=== PATIENT | female | born 1990 | race Caucasian/White ===

== ENCOUNTER 2017-09-11 15:39 | Emergency (ER) | payer SELFPAY ==
--- NOTE | 2017-09-11 16:05 | EDPHYS ---
Physician Documentation [facility] Name: Nighat Andres Age: 26 yrs Sex: Female : 1990 Arrival Date: 09/11/2017 Time: 15:42 Bed 19 Private MD: out of town, doctor ED Physician Richy Mcneal HPI: 09/11 15:54 This 26 yrs old Female presents to ER via Ambulatory with complaints of jmm Toothache. 15:54 The patient presents with broken tooth/teeth, pain. The problem is located in the upper jmm right second molar, upper right first molar and upper right second bicuspid. Onset: The symptoms/episode began/occurred gradually, 2 week(s) ago. Associated signs and symptoms: Pertinent positives: pain, Pertinent negatives: fever. Severity of symptoms:. This is a 26 year old female with no chronic medical conditions that presents to the ED with right upper molar pain beginning a chipping a tooth. patient complains of generalized right facial pain, denies fever. . 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 - Social history:: Smoking status: Patient/guardian denies using tobacco. - Ebola Screening: : No symptoms or risks identified at this time. ROS: 15:54 Constitutional: Negative for fever, chills, and weight loss, Cardiovascular: Negative jm for chest pain, palpitations, and edema, Respiratory: Negative for shortness of breath, cough, wheezing, and pleuritic chest pain. 15:54 MS/Extremity: Negative for injury and deformity, Skin: Negative for injury, rash, and discoloration, Neuro: Negative for headache, weakness, numbness, tingling, and seizure. 15:54 ENT: Positive for dental pain. 15:54 All other systems are negative. Exam: 15:54 Head/Face: atraumatic. jmm 15:54 Constitutional: The patient appears in no acute distress, alert, awake. 15:54 Head/face: no swelling is appreciated. 15:54 ENT: Diffuse dental decay noted. 15:54 Abdomen/GI: Inspection: abdomen appears normal. [facility] 15:54 Musculoskeletal/extremity: ROM: intact in all extremities. 15:54 Skin: Appearance: Color: normal in color, Temperature: normal temperature, Moisture: normal moisture. 15:54 Neuro: Orientation: is normal, Mentation: is normal, Memory: is normal, Gait: is steady. Vital Signs: 15:43 BP 121 / 99; Pulse 83; Resp 18; Temp 98.1(TE); Pulse Ox 98% on R/A; Weight 74.84 kg; sv Height 5 ft. 2 in. (157.48 cm); Pain 8/10; 15:43 Body Mass Index 30.18 (74.84 kg, 157.48 cm) sv MDM: 15:54 Patient medically screened. [facility] 15:54 Data reviewed: vital signs, nurses notes. Counseling: I had a detailed discussion with yancy the patient and/or guardian regarding: the presence of at least one elevated blood pressure reading (>120/80) during this emergency department visit. ED course: PE findings are currently not concerning for dental abscess. patient is alert and non toxic in appearance in the ED. patient will prescribed antibiotics and she states she will follow up with dentist for reevaluation. patient is otherwise given return precautions. patient understood and agrees with the plan of care. . Administered Medications: No medications were administered Disposition: 09/11/17 16:04 Discharged to Home. Impression: Dental caries. - Condition is Stable. - Discharge Instructions: Dental Pain. - Prescriptions for Clindamycin HCl 300 mg Oral Capsule - take 1 capsule by ORAL route every 6 hours for 10 days; 40 capsule. - Medication Reconciliation Form, Thank You Letter, Antibiotic Education, Prescription Opioid Use form. - Follow up: Private Physician; When: 1 - 2 days; Reason: Re-evaluation by your physician. Addendum: 09/15/2017 11:59 Co-signature as Attending Physician, Richy Mcneal MD. g s Signatures: Irina Boswell RN RN Donnie Shaw PA PA jmm Munoz, Edgar, CAR CHASER CAR CHASER em Richy Mcneal MD MD gs Corrections: (The following items were deleted from the chart) 09/11 16:23 16:04 09/11/2017 16:04 Discharged to Home. Impression: Dental caries. Condition is em Stable. Forms are Medication Reconciliation Form, Thank You Letter, Antibiotic Education, Prescription Opioid Use. Follow up: Private Physician; When: 1 - 2 days; Reason: Re-evaluation by your physician. yancy
--- NOTE | 2017-09-11 16:05 | ER ---
Nurse's Notes [facility] Name: Nighat Andres Age: 26 yrs Sex: Female : 1990 Arrival Date: 09/11/2017 Time: 15:42 Bed 19 Private MD: out of town, doctor Diagnosis: Dental caries Presentation: 09/11 15:42 Presenting complaint: Patient states: tooth pain to the right upper side with right sv side cheek pain started yesterday. Tylenol taken this morning at 0800. Transition of care: patient was not received from another setting of care. Onset of symptoms was September 10, 2017. Risk Assessment: Do you want to hurt yourself or someone else? Patient reports no desire to harm self or others. Care prior to arrival: None. 15:42 Method Of Arrival: Ambulatory sv 15:42 Acuity: JM 4 sv 16:05 Initial Sepsis Screen: Does the patient meet any 2 criteria? No. Patient's initial em sepsis screen is negative. Does the patient have a suspected source of infection? No. Patient's initial sepsis screen is negative. 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 - Social history:: Smoking status: Patient/guardian denies using tobacco. - Ebola Screening: : No symptoms or risks identified at this time. Screenin:05 Abuse screen: Denies threats or abuse. Nutritional screening: No deficits noted. em Tuberculosis screening: No symptoms or risk factors identified. Fall Risk None identified. Assessment: 16:05 General: Appears in no apparent distress. uncomfortable, Behavior is calm, cooperative. em Pain: Complains of pain in mouth. Neuro: Level of Consciousness is awake, alert, obeys commands, Oriented to person, place, time, situation. Cardiovascular: Capillary refill < 3 seconds Patient's skin is warm and dry. Respiratory: Airway is patent Respiratory effort is even, unlabored, Respiratory pattern is regular, symmetrical. GI: Abdomen is flat. : No signs and/or symptoms were reported regarding the genitourinary system. EENT: Dental caries noted in upper right second bicuspid and upper right first molar and upper right second molar. Derm: Skin is intact, Skin is pink, warm \T\ dry. Musculoskeletal: Range of motion: intact in all extremities. 16:15 General: The previous assessment is accurate, call light remains within reach. . ss Vital Signs: 15:43 BP 121 / 99; Pulse 83; Resp 18; Temp 98.1(TE); Pulse Ox 98% on R/A; Weight 74.84 kg; sv Height 5 ft. 2 in. (157.48 cm); Pain 8/10; 15:43 Body Mass Index 30.18 (74.84 kg, 157.48 cm) sv ED Course: 15:42 Patient arrived in ED. sb2 15:42 out of town, doctor is Private Physician. sb2 15:43 Triage completed. sv 15:43 Arm band placed on right wrist. sv 15:48 Donnie Enrique PA is PHCP. [facility] 15:48 Richy Mcneal MD is Attending Physician. [facility] 16:05 No provider procedures requiring assistance completed. Patient did not have IV access em during this emergency room visit. 16:14 Tom Germain LVN is Primary Nurse. em 16:21 Patient has correct armband on for positive identification. Bed in low position. Call em light in reach. Administered Medications: No medications were administered Outcome: 16:04 Discharge ordered by . [facility] 16:22 Discharged to home ambulatory. em 16:22 Condition: good 16:22 Discharge instructions given to patient, Instructed on discharge instructions, follow up and referral plans. medication usage, Demonstrated understanding of instructions, follow-up care, medications, Prescriptions given X 1. 16:23 Patient left the ED. em Signatures: Irina Boswell RN ABIMBOLA Donnie Enrique PA PA [facility] Tom Germain LVN LVN em Yeny Crespo RN RN Ángela Hubbard sb2 Corrections: (The following items were deleted from the chart) 15:46 15:42 Presenting complaint: Patient states: tooth pain to the right upper side with sv right side cheek pain and swelling started yesterday. sv
[2017-09-11 16:37] VITALS: BP 121/99; TEMP 98.1; O2SAT 98
== END 2017-09-11 16:23 | disposition home or self-care (01) ==
LOC: ER 15:39
DX: K02.9 Dental caries, unspecified (principal); Z88.0 Allergy status to penicillin; Z88.1 Allergy status to other antibiotic agents; Z88.8 Allergy status to other drugs, medicaments and biological substances
CPT/HCPCS: 99282

== ENCOUNTER 2018-05-18 21:57 | Emergency (ER) | payer OTHER ==
--- OUTSIDE RECORDS SUMMARY | 2018-05-18 22:00 | XMS REPORT ---
:1990 [facility] Address [address] [place] [address] [address]. Wh[address] [place] [address] Care Team Providers Name Role Phone Unavailable Unavailable Unavailable Problems This patient has no known problems. Allergies, Adverse Reactions, Alerts This patient has no known allergies or adverse reactions. Medications This patient has no known medications.
--- NOTE | 2018-05-18 23:26 | EDPHYS ---
Physician Documentation [facility] Name: Nighat Andres Age: 27 yrs Sex: Female : 1990 Arrival Date: 05/18/2018 Time: 22:03 Bed 15 Private MD: ED Physician Dilan Salinas HPI: 05/18 23:37 This 27 yrs old Female presents to ER via Ambulatory with complaints of sore kb throat. 23:37 The patient presents with sore throat. The patient describes throat pain as constant. kb Onset: The symptoms/episode began/occurred 4 day(s) ago. Severity of symptoms: At their worst the symptoms were moderate, in the emergency department the symptoms are unchanged. Modifying factors: The symptoms are alleviated by nothing, the symptoms are aggravated by swallowing, Patient's oral intake status: good The patient has had contact with sick children. Associated signs and symptoms: Pertinent positives: rhinorrhea, Sore throat. The patient has not experienced similar symptoms in the past. The patient has not recently seen a physician. 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 - Social history:: Smoking status: Patient/guardian denies using tobacco, Patient/guardian denies using alcohol. - Ebola Screening: : No symptoms or risks identified at this time. ROS: 23:33 Constitutional: Negative for fever, chills, and weight loss, Neck: Negative for injury, kb pain, and swelling, Cardiovascular: Negative for chest pain, palpitations, and edema, Respiratory: Negative for shortness of breath, cough, wheezing, and pleuritic chest pain, Abdomen/GI: Negative for abdominal pain, nausea, vomiting, diarrhea, and constipation, : Negative for injury, bleeding, discharge, and swelling, MS/Extremity: Negative for injury and deformity, Skin: Negative for injury, rash, and discoloration, Neuro: Negative for headache, weakness, numbness, tingling, and seizure. 23:33 ENT: Positive for ear pain, rhinorrhea, sinus congestion, sore throat. Exam: 23:33 Constitutional: This is a well developed, well nourished patient who is awake, alert, kb and in no acute distress. Head/Face: Normocephalic, atraumatic. ENT: Nares patent. No nasal discharge, no septal abnormalities noted. Tympanic membranes are normal and external auditory canals are clear. Oropharynx with no redness, swelling, or masses, exudates, or evidence of obstruction, uvula midline. Mucous membranes moist. Chest/axilla: Normal chest wall appearance and motion. Nontender with no deformity. No lesions are appreciated. Cardiovascular: Regular rate and rhythm with a normal S1 and S2. No gallops, murmurs, or rubs. Normal PMI, no JVD. No pulse deficits. Respiratory: Lungs have equal breath sounds bilaterally, clear to auscultation and percussion. No rales, rhonchi or wheezes noted. No increased work of breathing, no retractions or nasal flaring. Abdomen/GI: Soft, non-tender, with normal bowel sounds. No distension or tympany. No guarding or rebound. No evidence of tenderness throughout. Skin: Warm, dry with normal turgor. Normal color with no rashes, no lesions, and no evidence of cellulitis. MS/ Extremity: Pulses equal, no cyanosis. Neurovascular intact. Full, normal range of motion. Neuro: Awake and alert, GCS 15, oriented to person, place, time, and situation. Cranial nerves II-XII grossly intact. Motor strength 5/5 in all extremities. Sensory grossly intact. Cerebellar exam normal. Normal gait. Vital Signs: 22:24 BP 111 / 78; Pulse 85; Resp 18 S; Temp 98(O); Pulse Ox 99% on R/A; Weight 79.38 kg (R); bb Height 5 ft. 2 in. (157.48 cm) (R); Pain 7/10; 22:24 Body Mass Index 32.01 (79.38 kg, 157.48 cm) bb MDM: 23:14 Patient medically screened. kb 23:33 Data reviewed: vital signs, nurses notes. Data interpreted: Pulse oximetry: on room air kb is 99 %. Interpretation: normal. Counseling: I had a detailed discussion with the patient and/or guardian regarding: the historical points, exam findings, and any diagnostic results supporting the discharge/admit diagnosis, lab results, the need for outpatient follow up, a family practitioner, to return to the emergency department if symptoms worsen or persist or if there are any questions or concerns that arise at home. 05/18 22:24 Order name: Strep; Complete Time: 23:07 kb 05/18 23:11 Order name: Throat Culture EDMS Administered Medications: No medications were administered Disposition: 05/19 12:30 Co-signature as Attending Physician, Dilan Salinas MD I agree with the assessment and abdi plan of care. Disposition: 05/18/18 23:26 Discharged to Home. Impression: Allergic rhinitis, unspecified. - Condition is Stable. - Discharge Instructions: Sore Throat, [id number], Allergies, [id number]. - Medication Reconciliation Form, Thank You Letter, Antibiotic Education, Prescription Opioid Use form. - Follow up: Emergency Department; When: As needed; Reason: Worsening of condition. Follow up: Private Physician; When: 2 - 3 days; Reason: Recheck today's complaints, Continuance of care, Re-evaluation by your physician. Signatures: Dispatcher [employer] EDTX Marcell Shahrzad, BOOTH CASHIER-C BOOTH CASHIER-Ckb Dilan Salinas MD MD cha Ballard, Brenda, RN RN Romario Garcia RN RN rr5 Corrections: (The following items were deleted from the chart) 05/18 23:34 23:26 05/18/2018 23:26 Discharged to Home. Impression: Allergic rhinitis, unspecified. rr5 Condition is Stable. Forms are Medication Reconciliation Form, Thank You Letter, Antibiotic Education, Prescription Opioid Use. Follow up: Emergency Department; When: As needed; Reason: Worsening of condition. Follow up: Private Physician; When: 2 - 3 days; Reason: Recheck today's complaints, Continuance of care, Re-evaluation by your physician. kb
--- NOTE | 2018-05-18 23:26 | ER ---
Nurse's Notes [facility] Name: Nighat Andres Age: 27 yrs Sex: Female : 1990 Arrival Date: 05/18/2018 Time: 22:03 Bed 15 Private MD: Diagnosis: Allergic rhinitis, unspecified Presentation: 05/18 22:21 Presenting complaint: Patient states: she is having ear aches since Tuesday and a sore bb throat, pt's daughters have strep and pt is 6.5 months . Transition of care: patient was not received from another setting of care. Onset of symptoms was May 16, 2018. Risk Assessment: Do you want to hurt yourself or someone else? Patient reports no desire to harm self or others. Initial Sepsis Screen: Does the patient meet any 2 criteria? No. Patient's initial sepsis screen is negative. Does the patient have a suspected source of infection? No. Patient's initial sepsis screen is negative. Care prior to arrival: None. 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 - Social history:: Smoking status: Patient/guardian denies using tobacco, Patient/guardian denies using alcohol. - Ebola Screening: : No symptoms or risks identified at this time. Screenin:15 Abuse screen: Denies threats or abuse. Denies injuries from another. Nutritional rr5 screening: No deficits noted. Tuberculosis screening: No symptoms or risk factors identified. Fall Risk None identified. Total Terry Fall Scale indicates No Risk (0-24 pts). Assessment: 23:15 General: Appears in no apparent distress. comfortable, Behavior is calm, cooperative, rr5 appropriate for age. Pain: Complains of pain in ear and throat Pain does not radiate. Pain Quality of pain is described as aching, Pain began gradually, Is intermittent. Neuro: Level of Consciousness is awake, alert, obeys commands, Oriented to person, place, time, situation, Appropriate for age. Cardiovascular: Capillary refill < 3 seconds Patient's skin is warm and dry. Respiratory: Airway is patent Respiratory effort is even, unlabored, Respiratory pattern is regular, symmetrical. GI: No signs and/or symptoms were reported involving the gastrointestinal system. : No signs and/or symptoms were reported regarding the genitourinary system. EENT: Reports pain in ear and throat. Derm: Skin is intact, Skin temperature is warm. Musculoskeletal: Capillary refill Range of motion: intact in all extremities. 23:30 Reassessment: Patient appears in no apparent distress at this time. No changes from rr5 previously documented assessment. discharge instruction given and explained without complaints made. Vital Signs: 22:24 BP 111 / 78; Pulse 85; Resp 18 S; Temp 98(O); Pulse Ox 99% on R/A; Weight 79.38 kg (R); bb Height 5 ft. 2 in. (157.48 cm) (R); Pain 7/10; 22:24 Body Mass Index 32.01 (79.38 kg, 157.48 cm) bb ED Course: 22:03 Patient arrived in ED. am2 22:23 Triage completed. bb 22:24 Arm band placed on Patient placed in waiting room, Patient notified of wait time. Labs bb ordered per protocol. strep swab obtained and sent to lab. 22:29 Sh[facility]ad Faith [facility]C [facility]. kb 22:29 Dilan Salinas MD is Attending Physician. kb 23:15 Patient has correct armband on for positive identification. rr5 23:15 No provider procedures requiring assistance completed. Patient did not have IV access rr5 during this emergency room visit. 23:28 Romario Low, ABIMBOLA is Primary Nurse. rr5 Administered Medications: No medications were administered Outcome: 23:15 Discharged to home ambulatory. rr5 23:15 Condition: stable 23:15 Discharge instructions given to patient, Instructed on discharge instructions, follow up and referral plans. Demonstrated understanding of instructions, follow-up care. 23:26 Discharge ordered by . kb 23:34 Patient left the ED. rr5 Signatures: Shahrzad Faith, Franchesca Fisher, RN RN bb Rosaura Ocampo Raymond, RN RN rr5
[2018-05-19 00:49] VITALS: BP 111/78; TEMP 98; O2SAT 99
== END 2018-05-18 23:34 | disposition home or self-care (01) ==
LOC: ER 21:57
DX: J30.9 Allergic rhinitis, unspecified (principal); Z3A.27 27 weeks gestation of pregnancy; Z88.0 Allergy status to penicillin; Z88.1 Allergy status to other antibiotic agents; Z88.8 Allergy status to other drugs, medicaments and biological substances
CPT/HCPCS: 87070; 87081; 99283

== ENCOUNTER 2020-10-06 11:56 | Emergency (ER) | payer OTHER ==
--- OUTSIDE RECORDS SUMMARY | 2020-10-06 11:59 | XMS REPORT | Continuity of Care Document ---
:1990 Author Organization [facility] t Address [address] [place] [address] [address]. [address] [place] [address] Care Team Providers Name Role Phone Unavailable Unavailable Unavailable Problems This patient has no known problems. Allergies, Adverse Reactions, Alerts This patient has no known allergies or adverse reactions. Medications This patient has no known medications. Procedures This patient has no known procedures. Results This patient has no known results.
--- NOTE | 2020-10-06 12:16 | EDPHYS ---
Physician Documentation [facility] Name: Nighat Andres Age: 29 yrs Sex: Female : 1990 Arrival Date: 10/06/2020 Time: 11:59 Bed 25 Private MD: ED Physician Santino Govea HPI: 10/06 17:41 This 29 yrs old Female presents to ER via Ambulatory with complaints of kb Throat Problem. 17:41 The patient presents with itching, localized swelling, redness of skin. Onset: The kb symptoms/episode began/occurred yesterday. Associated signs and symptoms: Pertinent positives: swelling. Possible causes: wasp. At home the patient or guardian has treated the symptoms with Benadryl. Severity of symptoms: At their worst the symptoms were mild in the emergency department the symptoms are unchanged. The patient has experienced similar episodes in the past, a few times. The patient has not recently seen a physician. Pt reports she was stung by wasp on forehead yesterday at 1600. Reports redness, swelling and itching to area as well as itching to throat. Went to work today and they sent her home. States she only came because she needs a note to go back. 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 - Social history:: Smoking status: Patient denies any tobacco usage or history of. ROS: 17:32 Constitutional: Negative for fever, chills, and weight loss. kb 17:32 Skin: Positive for erythema, swelling, of the forehead. 17:40 All other systems are negative. kb Exam: 17:40 Constitutional: This is a well developed, well nourished patient who is awake, alert, kb and in no acute distress. Head/Face: Normocephalic, atraumatic. ENT: Moist Mucous membranes Cardiovascular: Regular rate and rhythm with a normal S1 and S2. No gallops, murmurs, or rubs. No pulse deficits. Respiratory: Respirations even and unlabored. No increased work of breathing, no retractions or nasal flaring. Abdomen/GI: Soft, non-tender. No distention MS/ Extremity: Pulses equal, no cyanosis. Neurovascular intact. Full, normal range of motion. Neuro: Awake and alert, GCS 15, oriented to person, place, time, and situation. Moves all extremities. Normal gait. Psych: Awake, alert, with orientation to person, place and time. Behavior, mood, and affect are within normal limits. 17:40 Skin: Appearance: normal except for affected area, Color: erythematous, swelling, noted kb on the forehead, that are mild. Vital Signs: 12:06 BP 139 / 107; Pulse 93; Resp 17 S; Temp 98.0(TE); Pulse Ox 99% on R/A; Weight 86.18 kg jd3 (R); Height 5 ft. 2 in. (157.48 cm) (R); Pain 1/10; 12:17 BP 136 / 97; Pulse 80; Resp 16; Pulse Ox 100% ; vg1 12:06 Body Mass Index 34.75 (86.18 kg, 157.48 cm) jd3 MDM: 12:11 Patient medically screened. kb 17:31 Data reviewed: vital signs, nurses notes. Data interpreted: Pulse oximetry: on room air kb is 100 %. Interpretation: normal. Counseling: I had a detailed discussion with the patient and/or guardian regarding: the historical points, exam findings, and any diagnostic results supporting the discharge/admit diagnosis, the need for outpatient follow up, a family practitioner, to return to the emergency department if symptoms worsen or persist or if there are any questions or concerns that arise at home. Administered Medications: 12:28 Drug: predniSONE 40 mg Route: PO; vg1 12:28 Follow up: Response: Medication administered at discharge. vg1 12:28 Drug: Pepcid (famotidine) 20 mg Route: PO; vg1 12:28 Follow up: Response: Medication administered at discharge. vg1 Disposition: 17:48 Co-signature as Attending Physician, Santino Govea MD. rn Disposition: 10/06/20 12:16 Discharged to Home. Impression: Bitten or stung by nonvenomous insect and other nonvenomous arthropods, Other insect allergy status - wasp. - Condition is Stable. - Discharge Instructions: Allergies, Adult, Bee, Wasp, or Hornet Sting, Adult. - Prescriptions for Pepcid 20 mg Oral Tablet - take 1 tablet by ORAL route every 12 hours for 5 days; 10 tablet. Prednisone 20 mg Oral Tablet - take 1 tablet by ORAL route once daily for 5 days; 5 tablet. - Work release form, Medication Reconciliation Form, Thank You Letter, Antibiotic Education, Prescription Opioid Use form. - Follow up: Emergency Department; When: As needed; Reason: Worsening of condition. Follow up: Private Physician; When: 2 - 3 days; Reason: Recheck today's complaints, Continuance of care, Re-evaluation by your physician. Signatures: Shahrzad Faith, CATTLE KNOCKER-C CATTLE KNOCKER-CkSantino Ryder MD MD rn Davies, Jonathon, RN RN jd3 Garcia, Victoria RN RN vg1 Corrections: (The following items were deleted from the chart) 12:29 12:16 10/06/2020 12:16 Discharged to Home. Impression: Bitten or stung by nonvenomous vg1 insect and other nonvenomous arthropods; Other insect allergy status - wasp. Condition is Stable. Forms are Medication Reconciliation Form, Thank You Letter, Antibiotic Education, Prescription Opioid Use. Follow up: Emergency Department; When: As needed; Reason: Worsening of condition. Follow up: Private Physician; When: 2 - 3 days; Reason: Recheck today's complaints, Continuance of care, Re-evaluation by your physician. kb 17:40 17:40 Constitutional: This is a well developed, well nourished patient who is awake, kb alert, and in no acute distress. Head/Face: Normocephalic, atraumatic. ENT: Moist Mucous membranes Cardiovascular: Regular rate and rhythm with a normal S1 and S2. No gallops, murmurs, or rubs. No pulse deficits. Respiratory: Respirations even and unlabored. No increased work of breathing, no retractions or nasal flaring. Abdomen/GI: Soft, non-tender. No distention Skin: Warm, dry with normal turgor. Normal color. MS/ Extremity: Pulses equal, no cyanosis. Neurovascular intact. Full, normal range of motion. Neuro: Awake and alert, GCS 15, oriented to person, place, time, and situation. Moves all extremities. Normal gait. Psych: Awake, alert, with orientation to person, place and time. Behavior, mood, and affect are within normal limits. kb 17:41 17:32 Skin: Positive for swelling, kb kb
--- NOTE | 2020-10-06 12:16 | ER ---
Nurse's Notes [facility] Name: Nighat Andres Age: 29 yrs Sex: Female : 1990 Arrival Date: 10/06/2020 Time: 11:59 Bed 25 Private MD: Diagnosis: Bitten or stung by nonvenomous insect and other nonvenomous arthropods;Other insect allergy status-wasp Presentation: 10/06 12:02 Chief complaint: Patient states: "I got stung by a wasp yesterday and now today I am jd3 having some sore throat and swelling in my face. 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 I mainly came because my work said I am not aloud back unless I have a work note. I have been allergic all my life and this is nothing.". Coronavirus screen: At this time, the client does not indicate any symptoms associated with coronavirus-19. Ebola Screen: Patient negative for fever greater than or equal to 101.5 degrees Fahrenheit, and additional compatible Ebola Virus Disease symptoms. Initial Sepsis Screen: Does the patient meet any 2 criteria? No. Patient's initial sepsis screen is negative. Does the patient have a suspected source of infection? No. Patient's initial sepsis screen is negative. Risk Assessment: Do you want to hurt yourself or someone else? Patient reports no desire to harm self or others. Onset of symptoms was October 05, 2020. 12:02 Method Of Arrival: Ambulatory jd3 12:02 Acuity: JM 4 jd3 12:05 Note Benadryl last taken last night at 2330. 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 - Social history:: Smoking status: Patient denies any tobacco usage or history of. Screenin:17 Abuse screen: Denies threats or abuse. Nutritional screening: No deficits noted. vg1 Tuberculosis screening: No symptoms or risk factors identified. Fall Risk No fall in past 12 months (0 pts). No secondary diagnosis (0 pts). No IV (0 pts). Ambulatory Aid- None/Bed Rest/Nurse Assist (0 pts). Gait- Normal/Bed Rest/Wheelchair (0 pts) Mental Status- Oriented to own ability (0 pts). Total Terry Fall Scale indicates No Risk (0-24 pts). Assessment: 12:16 General: Appears in no apparent distress. comfortable, Behavior is calm, cooperative. vg1 Pain: Denies pain. Neuro: Level of Consciousness is awake, alert, obeys commands, Oriented to person, place, time, situation. Cardiovascular: Patient's skin is warm and dry. Respiratory: Airway is patent Respiratory effort is even, unlabored. EENT: Throat is clear is pink. Derm: Reports itching, since yesterday on face and neck. Musculoskeletal: Circulation, motion, and sensation intact. Vital Signs: 12:06 BP 139 / 107; Pulse 93; Resp 17 S; Temp 98.0(TE); Pulse Ox 99% on R/A; Weight 86.18 kg jd3 (R); Height 5 ft. 2 in. (157.48 cm) (R); Pain 1/10; 12:17 BP 136 / 97; Pulse 80; Resp 16; Pulse Ox 100% ; vg1 12:06 Body Mass Index 34.75 (86.18 kg, 157.48 cm) jd3 ED Course: 11:59 Patient arrived in ED. mr 12:03 Triage completed. jd3 12:04 Arm band placed on. jd3 12:05 Shahrzad Faith F[facility]-C [facility]. kb 12:05 Santino Govea MD is Attending Physician. kb 12:11 Veronique Jaeger RN is Primary Nurse. vg1 12:17 Patient has correct armband on for positive identification. Bed in low position. Call vg1 light in reach. Side rails up X 1. 12:29 No provider procedures requiring assistance completed. Patient did not have IV access vg1 during this emergency room visit. Administered Medications: 12:28 Drug: predniSONE 40 mg Route: PO; vg1 12:28 Follow up: Response: Medication administered at discharge. vg1 12:28 Drug: Pepcid (famotidine) 20 mg Route: PO; vg1 12:28 Follow up: Response: Medication administered at discharge. vg1 Outcome: 12:16 Discharge ordered by . huber 12:29 Discharged to home ambulatory. vg1 12:29 Condition: stable 12:29 Discharge instructions given to patient, Instructed on discharge instructions, follow up and referral plans. medication usage, Demonstrated understanding of instructions, follow-up care, medications, Prescriptions given X 2. 12:29 Patient left the ED. vg1 Signatures: Shahrzad Faith, BARNWORKER GROOM-C BARNWORKER GROOM-Citlali Chan mr CostaJf RN RN jVeronique Bernardo RN RN vg1 Corrections: (The following items were deleted from the chart) 12:05 12:02 Chief complaint: Patient states: "I got stung by a wasp yesterday and now today I jd3 am having some sore throat and swelling in my face. 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
[2020-10-06] MEDS ORDERED: predniSONE 20 MG TAB ONE (12:42)
[2020-10-06] MEDS ORDERED: FAMOTIDINE 20 MG TAB ONE (12:42)
[2020-10-06 12:58] VITALS: TEMP 98
[2020-10-06 13:03] VITALS: BP 136/97; O2SAT 100
== END 2020-10-06 12:29 | disposition home or self-care (01) ==
LOC: ER 11:56
DX: S00.86XA Insect bite (nonvenomous) of other part of head, initial encounter (principal); Z91.038 Other insect allergy status; Z88.0 Allergy status to penicillin; Z88.1 Allergy status to other antibiotic agents; Z88.8 Allergy status to other drugs, medicaments and biological substances
CPT/HCPCS: 99283; J7512

== ENCOUNTER 2021-06-23 18:06 | Emergency (ER) | payer OTHER, SELFPAY ==
--- OUTSIDE RECORDS SUMMARY | 2021-06-23 18:09 | XMS REPORT | Continuity of Care Document ---
:1990 Author Organization [facility] t Address [address] [place] [address] Dr. Whitta[address]r [address] [place] [id number] Care Team Providers Name Role Phone Unavailable Unavailable Unavailable Problems This patient has no known problems. Allergies, Adverse Reactions, Alerts This patient has no known allergies or adverse reactions. Medications This patient has no known medications. Procedures This patient has no known procedures. Results This patient has no known results.
[2021-06-23] MEDS ORDERED: CODEINE 30MG/APAP 300MG TAB ONE (18:49)
[2021-06-23] MEDS ORDERED: IBUPROFEN 400 MG TAB ONE (18:50)
--- NOTE | 2021-06-23 19:48 | EDPHYS ---
Physician Documentation [facility] Name: Nighat Andres Age: 30 yrs Sex: Female : 1990 Arrival Date: 06/23/2021 Time: 18:11 Bed 15 Private MD: ED Physician Mc Pearson HPI: 06/23 18:40 This 30 yrs old Female presents to ER via Ambulatory with complaints of Toothache. cp 18:40 The patient presents with pain. The problem is located in the right lower jaw. cp 18:40 Onset: The symptoms/episode began/occurred gradually, and became worse last night. cp 18:40 Duration: The symptoms are continuous, and are steadily getting worse. Associated signs cp and symptoms: Pertinent positives: ear pain and neck pain. 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 - Social history:: Smoking status: Patient denies any tobacco usage or history of. ROS: 18:45 Constitutional: Negative for body aches, chills, fever, poor PO intake. cp 18:45 Eyes: Negative for injury, pain, redness, and discharge. cp 18:45 ENT: Positive for dental pain, ear pain, Negative for drainage from ear(s), sore throat, difficulty swallowing, difficulty handling secretions. 18:45 Neck: Positive for pain at rest, Negative for stiffness. 18:45 Cardiovascular: Negative for chest pain, palpitations. 18:45 Respiratory: Negative for cough, shortness of breath, wheezing. 18:45 Abdomen/GI: Negative for abdominal pain, nausea, vomiting, and diarrhea. 18:45 Neuro: Negative for altered mental status, headache, weakness. 18:45 All other systems are negative. Exam: 18:50 Constitutional: The patient appears in no acute distress, alert, awake, non-toxic, well cp developed, well nourished, uncomfortable. 18:50 Head/Face: Normocephalic, atraumatic. cp 18:50 Eyes: Periorbital structures: appear normal, Conjunctiva: normal, no exudate, no injection, Sclera: no appreciated abnormality, Lids and lashes: appear normal, bilaterally. 18:50 ENT: External ear(s): are unremarkable, Ear canal(s): are normal, clear, TM's: dullness, bilaterally, Nose: is normal, Mouth: Lips: moist, Oral mucosa: pink and intact, moist, Tongue: is normal, abscess, is not appreciated, drooling, is not appreciated, Posterior pharynx: Airway: no evidence of obstruction, patent, Dental exam: abscess, is not appreciated, dental caries, that is mild, diffusely, gum swelling, not appreciated, pain, that is moderate, specifically in the lower right second molar (#31) and lower right third molar (#32), Voice: is normal. 18:50 Neck: ROM/movement: limited range of motion, is not appreciated, Meningeal signs: are not present, Lymph nodes: lymphadenopathy is appreciated, submandibular nodes. 18:50 Chest/axilla: Inspection: normal. 18:50 Cardiovascular: Rate: normal, Rhythm: regular. 18:50 Respiratory: the patient does not display signs of respiratory distress, Respirations: normal, no use of accessory muscles, no retractions, labored breathing, is not present, Breath sounds: are clear throughout, no decreased breath sounds, no stridor, no wheezing. 18:50 Abdomen/GI: Exam negative for discomfort, distension, guarding, Inspection: abdomen appears normal. 18:50 Neuro: Orientation: to person, place \T\ time. Mentation: is normal. Vital Signs: 18:15 BP 158 / 106; Pulse 83; Resp 15; Temp 99.0; Pulse Ox 99% on R/A; Weight 87.54 kg; ab2 Height 5 ft. 2 in. (157.48 cm); Pain 9/10; 19:54 BP 141 / 82; Pulse 81; Resp 17; Pulse Ox 100% on R/A; sm5 18:15 Body Mass Index 35.30 (87.54 kg, 157.48 cm) ab2 MDM: 18:25 Patient medically screened. cp 19:45 Data reviewed: vital signs, nurses notes. cp 19:45 Counseling: I had a detailed discussion with the patient and/or guardian regarding: the cp historical points, exam findings, and any diagnostic results supporting the discharge/admit diagnosis, the need for outpatient follow up, for definitive care, a dentist, to return to the emergency department if symptoms worsen or persist or if there are any questions or concerns that arise at home. Response to treatment: the patient's symptoms have markedly improved after treatment, and as a result, I will discharge patient. Administered Medications: 18:57 Drug: Clindamycin 300 mg Route: PO; ap3 19:55 Follow up: Response: No adverse reaction sm5 18:57 Drug: Ibuprofen 800 mg Route: PO; ap3 19:55 Follow up: Response: Pain is decreased sm5 18:57 Drug: Tylenol #3 (300 mg-30 mg) 2 tabs Route: PO; ap3 19:55 Follow up: Response: Pain is decreased sm5 Disposition: 06/24 07:12 Co-signature as Attending Physician, Mc BARLWO was present in the Emergency ms3 Department for consultation. Disposition Summary: 06/23/21 19:47 Discharge Ordered Location: Home cp Problem: new cp Symptoms: have improved cp Condition: Stable cp Diagnosis - Disorder of teeth and supporting structures, unspecified cp Followup: cp - With: Private Physician - When: 2 - 3 days - Reason: Recheck today's complaints Discharge Instructions: - Discharge Summary Sheet cp - Dental Pain cp Forms: - Medication Reconciliation Form cp - Thank You Letter cp - Antibiotic Education cp - Prescription Opioid Use cp Prescriptions: - Clindamycin HCl 300 mg Oral Capsule - take 1 capsule by ORAL route every 6 hours for 10 days; 40 capsule; Refills: 0, cp Product Selection Permitted - Ibuprofen 800 mg Oral Tablet - take 1 tablet by ORAL route every 8 hours As needed take with food; 30 tablet; cp Refills: 0, Product Selection Permitted - Zofran 4 mg Oral Tablet - take 1 tablet by ORAL route every 12 hours As needed; 20 tablet; Refills: 0, cp Product Selection Permitted Signatures: Dilan Driver PA PA cp Prokisch, Amanda RN RN ap3 Mc Pearson DO DO ms3 Jeremiah Cordon Sarah RN 5 Corrections: (The following items were deleted from the chart) 02:02 06/23 18:40 Associated signs and symptoms: Pertinent positives: ear pain, cp cp
--- NOTE | 2021-06-23 19:48 | ER ---
Nurse's Notes [facility] Name: Nighat Andres Age: 30 yrs Sex: Female : 1990 Arrival Date: 06/23/2021 Time: 18:11 Bed 15 Private MD: Diagnosis: Disorder of teeth and supporting structures, unspecified Presentation: 06/23 18:15 Chief complaint: Patient states: "I have a really bad tooth ache, I think its an ab2 abscess. Last night it started making my ear and neck hurt.". Coronavirus screen: Vaccine status: Patient reports being unvaccinated. Client denies travel out of the [place] in the last 14 days. At this time, the client does not indicate any symptoms associated with coronavirus-19. Ebola Screen: Patient negative for fever greater than or equal to 101.5 degrees Fahrenheit, and additional compatible Ebola Virus Disease symptoms Patient denies exposure to infectious person. Patient denies travel to an Ebola-affected area in the 21 days before illness onset. No symptoms or risks identified at this time. Initial Sepsis Screen: Does the patient meet any 2 criteria? No. Patient's initial sepsis screen is negative. Does the patient have a suspected source of infection? No. Patient's initial sepsis screen is negative. Risk Assessment: Do you want to hurt yourself or someone else? Patient reports no desire to harm self or others. Onset of symptoms is unknown. 18:15 Method Of Arrival: Ambulatory ab2 18:15 Acuity: JM 4 ab2 Triage Assessment: 18:17 General: Appears in no apparent distress. comfortable, Behavior is calm, cooperative, ab2 appropriate for age. Pain: Complains of pain in right jaw Pain radiates to neck. EENT: Reports pain in right jaw. 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 - Social history:: Smoking status: Patient denies any tobacco usage or history of. Screenin:23 Abuse screen: Denies threats or abuse. Nutritional screening: No deficits noted. ap3 Tuberculosis screening: No symptoms or risk factors identified. Fall Risk None identified. Assessment: 18:26 General: Appears uncomfortable, Behavior is calm, cooperative. Pain: Complains of pain ap3 in right jaw Pain began gradually, 1 day ago. Neuro: Level of Consciousness is awake, alert, obeys commands. Respiratory: Airway is patent Respiratory effort is even, unlabored. EENT: Poor dentition noted. 19:47 General: Appears in no apparent distress. Behavior is cooperative. Neuro: No deficits sm5 noted. Level of Consciousness is awake, alert, obeys commands, Oriented to person, place, time, situation. Cardiovascular: No deficits noted. Capillary refill < 3 seconds Patient's skin is warm and dry. Respiratory: No deficits noted. Airway is patent Trachea midline Respiratory effort is even, unlabored. EENT: Poor dentition noted. swelling to L side of face/cheek. Vital Signs: 18:15 BP 158 / 106; Pulse 83; Resp 15; Temp 99.0; Pulse Ox 99% on R/A; Weight 87.54 kg; ab2 Height 5 ft. 2 in. (157.48 cm); Pain 9/10; 19:54 BP 141 / 82; Pulse 81; Resp 17; Pulse Ox 100% on R/A; sm5 18:15 Body Mass Index 35.30 (87.54 kg, 157.48 cm) ab2 ED Course: 18:11 Patient arrived in ED. mr 18:13 Dilan Driver PA is PHCP. cp 18:13 Mc Pearson DO is Attending Physician. cp 18:16 Triage completed. ab2 18:17 Arm band placed on left wrist. ab2 18:23 Rosaura Hernandez, ABIMBOLA is Primary Nurse. ap3 18:23 Patient has correct armband on for positive identification. Bed in low position. Call ap3 light in reach. Pulse ox on. NIBP on. Door closed. Noise minimized. 19:54 No provider procedures requiring assistance completed. Patient did not have IV access sm5 during this emergency room visit. Administered Medications: 18:57 Drug: Clindamycin 300 mg Route: PO; ap3 19:55 Follow up: Response: No adverse reaction sm5 18:57 Drug: Ibuprofen 800 mg Route: PO; ap3 19:55 Follow up: Response: Pain is decreased sm5 18:57 Drug: Tylenol #3 (300 mg-30 mg) 2 tabs Route: PO; ap3 19:55 Follow up: Response: Pain is decreased 5 Outcome: 19:47 Discharge ordered by . cp 19:54 Discharged to home ambulatory. 5 19:54 Condition: stable 19:54 Discharge instructions given to patient, Instructed on discharge instructions, follow up and referral plans. medication usage, Demonstrated understanding of instructions, follow-up care, medications, Prescriptions given X 3. 19:55 Patient left the ED. 5 Signatures: Citlali Kohler mr Dilan Driver PA PA cp Prokisch, Amanda, RN RN ap3 Yoon Elmore RN RN sm5 Jeremiah Cordon2
[2021-06-23 20:09] VITALS: BP 141/82; O2SAT 100
[2021-06-23 20:10] VITALS: TEMP 99
== END 2021-06-23 19:55 | disposition home or self-care (01) ==
LOC: ER 18:06
DX: K08.89 Other specified disorders of teeth and supporting structures (principal); M54.2 Cervicalgia; Z88.0 Allergy status to penicillin; Z88.1 Allergy status to other antibiotic agents; Z88.8 Allergy status to other drugs, medicaments and biological substances
CPT/HCPCS: 99283

== ENCOUNTER 2022-04-18 17:35 | Emergency (ER) | payer OTHER, SELFPAY ==
--- OUTSIDE RECORDS SUMMARY | 2022-04-18 17:38 | XMS REPORT | Continuity of Care Document ---
:1990 Author Organization [facility] t Address [address] [place] [address] Dr. Whitt[address] [place] [address] Care Team Providers Name Role Phone Unavailable Unavailable Unavailable Problems This patient has no known problems. Allergies, Adverse Reactions, Alerts This patient has no known allergies or adverse reactions. Medications This patient has no known medications. Procedures This patient has no known procedures. Results This patient has no known results.
[2022-04-18 18:46] LABS: SARS-COV-2 RT PCR NEGATIVE (NEGATIVE)
--- NOTE | 2022-04-18 19:06 | EDPHYS ---
Physician Documentation [facility] Name: Nighat Andres Age: 31 yrs Sex: Female : 1990 Arrival Date: 04/18/2022 Time: 17:40 Bed IW1 Private MD: ED Physician Santino Govea HPI: 04/18 19:04 This 31 yrs old Female presents to ER via Ambulatory with complaints of Fever, Flu kb Symptoms. 19:04 The patient or guardian reports cough, that is intermittent, described as mild, flu kb symptoms, myalgias. Onset: The symptoms/episode began/occurred 1.5 week(s) ago. Severity of symptoms: At their worst the symptoms were moderate, in the emergency department the symptoms are unchanged. Modifying factors: The symptoms are alleviated by nothing, the symptoms are aggravated by nothing. Associated signs and symptoms: Pertinent positives: rhinorrhea, sore throat. The patient has not experienced similar symptoms in the past. The patient has not recently seen a physician. Patient reports cough, congestion, sore throat, headache for a week and a half. 2 children have similar symptoms. Had a faint positive COVID test at home today.. 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 kb 18:59 Constitutional: Positive for body aches, fever. 18:59 ENT: Positive for rhinorrhea, sinus congestion, sore throat. 18:59 Respiratory: Positive for cough, Negative for dyspnea on exertion, hemoptysis, orthopnea, pleurisy, shortness of breath, sputum production, wheezing. 18:59 Neuro: Positive for headache. 18:59 All other systems are negative. Exam: 18:59 Constitutional: This is a well developed, well nourished patient who is awake, alert, kb and in no acute distress. Head/Face: Normocephalic, atraumatic. ENT: Moist Mucous membranes Cardiovascular: Regular rate and rhythm with a normal S1 and S2. No gallops, murmurs, or rubs. No pulse deficits. Respiratory: Respirations even and unlabored. No increased work of breathing. Talking in full sentences Abdomen/GI: Soft, non-tender. No distention Skin: Warm, dry with normal turgor. Normal color. MS/ Extremity: Pulses equal, no cyanosis. Neurovascular intact. Full, normal range of motion. Neuro: Awake and alert, GCS 15, oriented to person, place, time, and situation. Moves all extremities. Normal gait. Psych: Awake, alert, with orientation to person, place and time. Behavior, mood, and affect are within normal limits. Vital Signs: 17:49 BP 148 / 103; Pulse 81; Resp 16; Temp 98.2(TE); Pulse Ox 98% on R/A; Weight 88 kg; hb Height 5 ft. 2 in. (157.48 cm); Pain 3/10; 17:49 Body Mass Index 35.48 (88.00 kg, 157.48 cm) hb MDM: 17:44 Patient medically screened. kb 18:59 Differential diagnosis: viral Infection, bacterial infection, URI, bronchitis, Flu, kb COVID. Data reviewed: vital signs, nurses notes. Data interpreted: Pulse oximetry: on room air is 98 %. Interpretation: normal. Counseling: I had a detailed discussion with the patient and/or guardian regarding: the historical points, exam findings, and any diagnostic results supporting the discharge/admit diagnosis, lab results, the need for outpatient follow up, a family practitioner, to return to the emergency department if symptoms worsen or persist or if there are any questions or concerns that arise at home. ED course: I considered the following discharge prescriptions or medication management in the emergency department: Antibiotics considered but symptoms are viral in nature. History obtained from: Patient Diagnostic test considered but not performed: Chest x-ray considered but patient's lungs are clear bilaterally . 04/18 17:50 Order name: COVID-19/FLU A+B/RSV; Complete Time: 18:58 kb Administered Medications: No medications were administered Disposition Summary: 04/18/22 19:05 Discharge Ordered Location: Home kb Condition: Stable kb Diagnosis - Acute upper respiratory infection, unspecified kb Followup: kb - With: Emergency Department - When: As needed - Reason: Worsening of condition Followup: kb - With: Private Physician - When: 2 - 3 days - Reason: Recheck today's complaints, Continuance of care, Re-evaluation by your physician Discharge Instructions: - Discharge Summary Sheet kb - Upper Respiratory Infection, Adult, [id number] kb - Viral Respiratory Infection, [id number] kb Forms: - Medication Reconciliation Form kb - Thank You Letter kb - Antibiotic Education kb - Prescription Opioid Use kb Addendum: 04/21/2022 19:53 Co-signature as Attending Physician, Santino Govea MD I reviewed the patient's care r n provided by the Advanced Practice Provider and agree with the diagnosis and treatment plan. Signatures: Dispatcher [employer] EDMN Shahrzad Faith, COMMERCIAL ENGINEER-C COMMERCIAL ENGINEER-Ckb Santino Govea MD MD rn Jackie Almonte RN RN Corrections: (The following items were deleted from the chart) 04/18 19:06 18:59 ED course: I considered the following discharge prescriptions or medication kb management in the emergency department: Antibiotics considered but symptoms are viral in nature. History obtained from: Patient . kb
--- NOTE | 2022-04-18 19:06 | ER ---
Nurse's Notes [facility] Name: Nighat Andres Age: 31 yrs Sex: Female : 1990 Arrival Date: 04/18/2022 Time: 17:40 Bed IW1 Private MD: Diagnosis: Acute upper respiratory infection, unspecified Presentation: 04/18 17:45 Chief complaint: Cough, headache, and sore throat x 1 week. Positive home COVID test hb today. Coronavirus screen: Client presents with at least one sign or symptom that may indicate coronavirus-19. Standard/surgical mask placed on the client. Provider contacted for isolation considerations. Ebola Screen: No symptoms or risks identified at this time. Onset of symptoms was April 11, 2022. 17:45 Method Of Arrival: Ambulatory hb 17:45 Acuity: JM 4 hb 17:49 Initial Sepsis Screen: Does the patient meet any 2 criteria? No. Patient's initial hb sepsis screen is negative. Does the patient have a suspected source of infection? No. Patient's initial sepsis screen is negative. Risk Assessment: Do you want to hurt yourself or someone else? Patient reports no desire to harm self or others. Triage Assessment: 17:46 General: Appears in no apparent distress. Behavior is calm, cooperative. Pain: Pain hb currently is 3 out of 10 on a pain scale. Neuro: Level of Consciousness is awake, alert, obeys commands, Oriented to person, place, time, situation. Cardiovascular: Patient's skin is warm and dry. Respiratory: Respiratory effort is even, unlabored, Respiratory pattern is regular, symmetrical. 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 Abuse screen: Denies threats or abuse. Nutritional screening: No deficits noted. Tuberculosis screening: No symptoms or risk factors identified. Vital Signs: 17:49 BP 148 / 103; Pulse 81; Resp 16; Temp 98.2(TE); Pulse Ox 98% on R/A; Weight 88 kg; hb Height 5 ft. 2 in. (157.48 cm); Pain 3/10; 17:49 Body Mass Index 35.48 (88.00 kg, 157.48 cm) hb ED Course: 17:40 Patient arrived in ED. am2 17:40 Armaan Redman MD is Private Physician. am2 17:44 Shahrzad Faith FNP-C is [facility]. kb 17:44 Santino Govea MD is Attending Physician. kb 17:48 Triage completed. hb 17:50 Arm band placed on. hb 18:00 COVID-19/FLU A+B/RSV Sent. mm9 19:48 No provider procedures requiring assistance completed. Patient did not have IV access vc1 during this emergency room visit. Administered Medications: No medications were administered Medication: 19:48 VIS not applicable for this client. vc1 Outcome: 19:05 Discharge ordered by MD. kb 19:48 Discharged to home ambulatory. vc1 19:48 Condition: good 19:48 Discharge instructions given to patient, Instructed on discharge instructions, follow up and referral plans. Demonstrated understanding of instructions, follow-up care. 19:49 Patient left the ED. vc1 Signatures: Shahrzad Faith FNP-C FNP-Ckb Baxter, Heather, RN RN Rosaura Ocampo am2 Ariadna Nur RN RN vc1 Michelle Hurtado mm9 Corrections: (The following items were deleted from the chart) 17:52 17:49 Pulse 81bpm; Resp 16bpm; Pulse Ox 98% RA; Temp 98.2F Temporal; 88 kg; Height 5 hb ft. 2 in.; BMI: 35.4; Pain 3/10; hb
[2022-04-18 19:53] VITALS: BP 148/103; TEMP 98.2; O2SAT 98
== END 2022-04-18 19:49 | disposition home or self-care (01) ==
LOC: ER 17:35
DX: J06.9 Acute upper respiratory infection, unspecified (principal); Z20.822 Contact with and (suspected) exposure to COVID-19
CPT/HCPCS: 0241U; 99283

== ENCOUNTER 2024-02-12 17:21 | Emergency (ER) | payer SELFPAY ==
--- OUTSIDE RECORDS SUMMARY | 2024-02-12 17:23 | XMS REPORT | Continuity of Care Document ---
Author Name Unknown Address [address] [place] [address] [employer] Address [address] [place] [address] [address] [place] [address] Care Team Providers Care Vial Gauger Name Role Phone Unavailable Unavailable Unavailable
[2024-02-12] MEDS ORDERED: ACETAMINOPHEN 500 MG TAB ONE (17:55)
[2024-02-12] MEDS ORDERED: IBUPROFEN 400 MG TAB ONE (17:55)
--- NOTE | 2024-02-12 18:07 | ER ---
Nurse's Notes [facility] Name: Nighat Andres Age: 33 yrs Sex: Female : 1990 Arrival Date: 02/12/2024 Time: 17:21 Bed 6 Private MD: Diagnosis: Other specified disorders of teeth and supporting structures Presentation: 02/11 17:28 Chief complaint: Patient states: Tooth broke off Tuesday to R upper jaw area. Site is ll1 painful and swollen for 2 days. No fever. Coronavirus screen: Client denies travel out of the [place] in the last 14 days. At this time, the client does not indicate any symptoms associated with coronavirus-19. Ebola Screen: Patient denies travel to an Ebola-affected area in the 21 days before illness onset. Initial Sepsis Screen: Does the patient meet any 2 criteria? No. Patient's initial sepsis screen is negative. Does the patient have a suspected source of infection? No. Patient's initial sepsis screen is negative. Risk Assessment: Do you want to hurt yourself or someone else? Patient reports no desire to harm self or others. Onset of symptoms was February 10, 2024. 17:28 Method Of Arrival: Ambulatory ll1 17:28 Acuity: JM 3 ll1 Triage Assessment: 17:28 General: Appears uncomfortable, Behavior is calm, cooperative, appropriate for age. ll1 Pain: Complains of pain in R upper jaw Quality of pain is described as aching, throbbing. EENT: Reports pain in right cheek tooth broke off to R upper jaw. 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 - Infectious Disease History:: Denies. - Social history:: Smoking status: Patient denies any tobacco usage or history of. Screenin:49 [facility] ED Fall Risk Assessment (Adult) History of falling in the last 3 months, me1 including since admission No falls in past 3 months (0 pts) Confusion or Disorientation No (0 pts) Intoxicated or Sedated No (0 pts) Impaired Gait No (0 pts) Mobility Assist Device Used No (0 pt) Altered Elimination No (0 pt) Score/Fall Risk Level 0 - 2 = Low Risk Maintained a safe environment, Provided non-skid footwear, Hourly rounding (assess needs \T\ fall precautionary measures) done. Abuse screen: Denies threats or abuse. Nutritional screening: No deficits noted. Tuberculosis screening: No symptoms or risk factors identified. Assessment: 17:49 General: Appears uncomfortable, well groomed, well developed, well nourished, Behavior me1 is calm, cooperative, appropriate for age, Reports Tooth broke off Tuesday to R upper jaw area. Site is painful and swollen for 2 days. No fever. Pain: Complains of pain in right buccal mucosa Pain does not radiate. Pain currently is 5 out of 10 on a pain scale. Quality of pain is described as pressure, Pain began gradually, 2-3 days ago. Is continuous. Neuro: Level of Consciousness is awake, alert, obeys commands, Oriented to person, place, time, situation, Appropriate for age. Cardiovascular: Patient's skin is warm and dry. Respiratory: Airway is patent Respiratory effort is even, unlabored, Respiratory pattern is regular, symmetrical. GI: No signs and/or symptoms were reported involving the gastrointestinal system. : No signs and/or symptoms were reported regarding the genitourinary system. EENT: Tooth broke off Tuesday to R upper jaw area. Site is painful and swollen for 2 days. No fever. Derm: Skin is intact, is healthy with good turgor, Skin is pink, warm \T\ dry. Musculoskeletal: No signs and/or symptoms reported regarding the musculoskeletal system. Vital Signs: 17:28 BP 180 / 124; Pulse 89; Resp 18; Pulse Ox 99% ; Weight 92.08 kg; Height 5 ft. 2 in. ; ll1 Pain 5/10; 17:35 BP 157 / 111; Temp 97.3; ll1 18:00 BP 146 / 99; Pulse 70; Resp 17; Pulse Ox 99% ; me1 17:28 Body Mass Index 37.13 (92.08 kg, 157.48 cm) ll1 17:28 Pain Scale: Adult ll1 ED Course: 17:23 Patient arrived in ED. ra3 17:25 Arm band placed on. ll1 17:30 Triage completed. ll1 17:32 Dilan Driver PA is PHCP. cp 17:32 Juani Li MD is Attending Physician. cp 17:48 Hetal Zapien, RN is Primary Nurse. me1 17:49 Patient has correct armband on for positive identification. Bed in low position. Call me1 light in reach. Side rails up X 1. Provided Education on: POC. Verbalized understanding. . Client placed on continuous cardiac and pulse oximetry monitoring. NIBP monitoring applied. Pulse ox on. NIBP on. 17:49 No provider procedures requiring assistance completed. me1 18:05 Marco Antonio Madera DDS is Referral Physician. cp 18:16 Patient did not have IV access during this emergency room visit. me1 Administered Medications: 17:57 Drug: Clindamycin PO 600 mg PO once Route: PO; me1 18:16 Follow up: Response: No adverse reaction me1 17:57 Drug: Ibuprofen PO 800 mg PO once Route: PO; me1 18:16 Follow up: Response: No adverse reaction; Pain is decreased me1 17:57 Drug: Acetaminophen PO 1000 mg PO once Route: PO; me1 18:16 Follow up: Response: No adverse reaction; Pain is decreased me1 Medication: 17:49 VIS not applicable for this client. me1 Outcome: 18:06 Discharge ordered by MD. cp 18:16 Discharged to home ambulatory, me1 18:16 Condition: stable 18:16 Discharge instructions given to patient, Instructed on discharge instructions, follow up and referral plans. medication usage, Demonstrated understanding of instructions, follow-up care, medications, Prescriptions given X 2, 18:16 Patient left the ED. me1 Signatures: Dilan Driver PA PA cp Sydni Whitt RN RN ll1 Hetal Zapien, ABIMBOLA RN me1 Talita Sawant ra3 Corrections: (The following items were deleted from the chart) 17:49 17:28 Chief complaint: Patient states: Tooth broke off Tuesday to R upper jaw area. Site me1 is painful and swollen for 2 days. No fever ll1 18:07 18:00 BP 146 / 109; Pulse 70bpm; Resp 17bpm; Pulse Ox 99%; me1 me1
--- NOTE | 2024-02-12 18:07 | EDPHYS ---
Physician Documentation [facility] Name: Nighat Andres Age: 33 yrs Sex: Female : 1990 Arrival Date: 02/12/2024 Time: 17:21 Bed 6 Private MD: ED Physician Juani Li HPI: 02/11 17:51 This 33 yrs old Female presents to ER via Ambulatory with complaints of Facial pain. cp 17:51 The patient presents with broken tooth/teeth, pain, gum swelling. cp 17:51 The problem is located in the right upper teeth. cp 17:51 Onset: The symptoms/episode began/occurred 2 day(s) ago. cp 17:51 Duration: The symptoms are continuous, and are steadily getting worse. Modifying cp factors: The symptoms are alleviated by nothing. Associated signs and symptoms: Pertinent negatives: dysphagia, fever, inability to eat, vomiting. Severity of symptoms: in the emergency department the symptoms are unchanged, despite home interventions. 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 - Infectious Disease History:: Denies. - Social history:: Smoking status: Patient denies any tobacco usage or history of. ROS: 17:55 Constitutional: Negative for body aches, chills, fever, cp 17:55 Eyes: Negative for injury, pain, redness, and discharge, cp 17:55 Respiratory: Negative for cough, shortness of breath, wheezing, 17:55 Abdomen/GI: Negative for abdominal pain, vomiting, diarrhea, constipation, 17:55 ENT: Positive for dental pain, Gum pain Negative for drainage from ear(s), ear pain, cp sore throat, difficulty swallowing, difficulty handling secretions, 17:55 Cardiovascular: Negative for chest pain, 17:55 Neuro: Negative for altered mental status, headache, weakness, 17:55 All other systems are negative, cp Exam: 18:00 Constitutional: The patient appears in no acute distress, alert, awake, non-toxic, well cp developed, well nourished, 18:00 Head/Face: Normocephalic, atraumatic. cp 18:00 Eyes: Periorbital structures: appear normal, Conjunctiva: normal, no exudate, no injection, Sclera: no appreciated abnormality, Lids and lashes: appear normal, bilaterally, 18:00 ENT: External ear(s): are unremarkable, Ear canal(s): are normal, clear, TM's: dullness, bilaterally, Nose: is normal, Mouth: Lips: moist, Oral mucosa: pink and intact, moist, Gums: mild swelling and erythema of right upper gums, Tongue: is normal, abscess, is not appreciated, Posterior pharynx: Airway: no evidence of obstruction, patent, Tonsils: are normal in appearance, erythema, is not appreciated, exudate, is not appreciated, Dental exam: dental caries, that is severe, diffusely, fractured teeth are noted, diffusely, missing teeth, multiple. pain, that is moderate, specifically in the upper right first bicuspid (#5), upper right cuspid (#6) and upper right lateral incisor (#7), Voice: is normal, 18:00 Neck: ROM/movement: pain, is not appreciated, limited range of motion, is not appreciated, Meningeal signs: are not present, Lymph nodes: no appreciated lymphadenopathy, 18:00 Chest/axilla: Inspection: normal, 18:00 Cardiovascular: Rate: normal, Rhythm: regular, 18:00 Respiratory: the patient does not display signs of respiratory distress, Respirations: normal, no use of accessory muscles, no retractions, labored breathing, is not present, Breath sounds: are clear throughout, no decreased breath sounds, no stridor, no wheezing, 18:00 Abdomen/GI: Inspection: abdomen appears normal, Vital Signs: 17:28 BP 180 / 124; Pulse 89; Resp 18; Pulse Ox 99% ; Weight 92.08 kg; Height 5 ft. 2 in. ; ll1 Pain 5/10; 17:35 BP 157 / 111; Temp 97.3; ll1 18:00 BP 146 / 99; Pulse 70; Resp 17; Pulse Ox 99% ; me1 17:28 Body Mass Index 37.13 (92.08 kg, 157.48 cm) ll1 17:28 Pain Scale: Adult ll1 MDM: 17:32 Medical Screening Exam initiated cp 17:55 Differential diagnosis: dental caries, gingivitis, dental abscess, pericoronitis, acute cp necrotizing ulcerative gingivitis, gingivostomatitis. 18:05 Data reviewed: vital signs, nurses notes, and as a result, I will discharge patient. cp 02/12 17:41 Counseling: I had a detailed discussion with the patient and/or guardian regarding the cp historical points, exam findings, and any diagnostic results supporting the discharge/admit diagnosis, the need for outpatient follow up, for definitive care, maxillary facial surgery, to return to the emergency department if symptoms worsen or persist or if there are any questions or concerns that arise at home. Response to treatment: the patient's symptoms have mildly improved after treatment, and as a result, I will discharge patient. Administered Medications: 02/11 17:57 Drug: Clindamycin PO 600 mg PO once Route: PO; me1 18:16 Follow up: Response: No adverse reaction me1 17:57 Drug: Ibuprofen PO 800 mg PO once Route: PO; me1 18:16 Follow up: Response: No adverse reaction; Pain is decreased me1 17:57 Drug: Acetaminophen PO 1000 mg PO once Route: PO; me1 18:16 Follow up: Response: No adverse reaction; Pain is decreased me1 Disposition Summary: 02/12/24 18:06 Discharge Ordered Notes: Location: Home cp Problem: new cp Symptoms: have improved cp Condition: Stable cp Diagnosis - Other specified disorders of teeth and supporting structures cp Followup: cp - With: Marco Antonio Madera DDS - When: 1 week - Reason: Recheck today's complaints Discharge Instructions: - Discharge Summary Sheet cp - Dental Pain cp - Diet and Dental Disease cp Forms: - Medication Reconciliation Form cp - Antibiotic Education cp - Prescription Opioid Use cp - Patient Portal Instructions cp - Leadership Thank You Letter cp Prescriptions: - Anaprox DS 550 mg Oral Tablet - take 1 tablet ORAL route every 12 hours As needed; 20 tablet; Refills: 0, cp Product Selection Permitted - Clindamycin HCl 300 mg Oral Capsule - take 1 capsule ORAL route every 6 hours for 10 days; 40 capsule; Refills: 0, cp Product Selection Permitted Signatures: Dilan Driver PA PA cp Lewis, Lynsay, RN RN ll1 Hetal Zapien, RN RN me1
[2024-02-12 18:24] VITALS: O2SAT 99
[2024-02-12 18:31] VITALS: TEMP 97.3
[2024-02-12 18:35] VITALS: BP 146/99
== END 2024-02-12 18:16 | disposition home or self-care (01) ==
LOC: ER 17:21
DX: S02.5XXA Fracture of tooth (traumatic), initial encounter for closed fracture (principal); K02.9 Dental caries, unspecified; K00.0 Anodontia
CPT/HCPCS: 99284

== ENCOUNTER 2024-12-05 21:40 | Emergency (ER) | payer SELFPAY ==
--- OUTSIDE RECORDS SUMMARY | 2024-12-05 21:43 | XMS REPORT | Continuity of Care Document ---
Author Name Unknown Address [address] [place] [address] [place] [id number] Care Team Providers Care Drying Machine Tender Name Role Phone Unavailable Unavailable Unavailable
[2024-12-05 23:11] LABS: Influenza A Ag Negative; Influenza B Ag Negative; SARS-CoV-2 Antigen Rapid Res Negative (Negative)
--- NOTE | 2024-12-05 23:18 | EDPHYS ---
Physician Documentation [facility] Name: Nighat Andres Age: 33 yrs Sex: Female : 1990 Arrival Date: 12/05/2024 Time: 21:40 Bed 11 Private MD: ED Physician Candelario Diego HPI: 12/05 22:04 This 33 yrs old Female presents to ER via Unassigned with complaints of Ear Pain, Jaw kb Pain. 22:04 Pt is a 33 year old female who presents for cough, congestion for 6 days with left ear kb pain and sore throat for 4 days. Denies fever. . 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 - Infectious Disease History:: Denies. - Social history:: Smoking status: Patient denies any tobacco usage or history of. ROS: 22:05 Constitutional: As per HPI kb Exam: 22:05 Constitutional: This is a well developed, well nourished patient who is awake, alert, kb and in no acute distress. Head/Face: Normocephalic, atraumatic. ENT: Moist Mucous membranes Cardiovascular: Regular rate Respiratory: Respirations even and unlabored. No increased work of breathing. Talking in full sentences Skin: Warm, dry with normal turgor. Normal color. MS/ Extremity: Pulses equal, no cyanosis. Neurovascular intact. Full, normal range of motion. Neuro: Awake and alert, GCS 15, oriented to person, place, time, and situation. Vital Signs: 22:11 Weight 92.99 kg; Height 5 ft. 2 in. ; Pain 4/10; vc1 22:18 BP 158 / 116; Pulse 80; Resp 18; Temp 98.8; Pulse Ox 98% ; vc1 22:11 Body Mass Index 37.49 (92.99 kg, 157.48 cm) vc1 22:11 Pain Scale: Adult vc1 MDM: 22:04 Medical Screening Exam initiated kb 23:17 Differential diagnosis: otitis media, otitis externa, ruptured TM, foreign body, COVID, kb flu. Data reviewed: vital signs, nurses notes. I considered the following discharge prescriptions or medication management in the emergency department I discussed and recommended Over The Counter medications, Antibiotics: At this time antibiotics are not recommended. Counseling: I had a detailed discussion with the patient and/or guardian regarding the historical points, exam findings, and any diagnostic results supporting the discharge/admit diagnosis, lab results, the need for outpatient follow up, a family practitioner, to return to the emergency department if symptoms worsen or persist or if there are any questions or concerns that arise at home. 12/05 22:04 Order name: COVID-19 Ag + Flu A+B Ag; Complete Time: 23:15 kb 12/05 22:04 Order name: Group A Streptococcus Rapid; Complete Time: 23:05 kb 12/05 23:11 Order name: Throat Culture EDMS Administered Medications: No medications were administered Disposition: 12/06 07:34 I reviewed the patient's care provided by the Advanced Practice Provider and agree with tw7 the diagnosis and treatment plan. Disposition Summary: 12/05/24 23:18 Discharge Ordered Notes: Location: Home kb Condition: Stable kb Diagnosis - Acute upper respiratory infection, unspecified kb - Otalgia, left ear kb Followup: kb - With: Emergency Department - When: As needed - Reason: Worsening of condition Followup: kb - With: Private Physician - When: 2 - 3 days - Reason: Recheck today's complaints, Continuance of care, Re-evaluation by your physician Discharge Instructions: - Discharge Summary Sheet kb - Earache, Adult kb - Upper Respiratory Infection, Adult, [id number] kb - Viral Respiratory Infection, [id number] kb Forms: - Medication Reconciliation Form kb - Antibiotic Education kb - Prescription Opioid Use kb - Patient Portal Instructions kb - Leadership Thank You Letter kb Signatures: Dispatcher [employer] Shahrzad Casey FNP-C FNP-Ckb Calcote, Vanessa, RN RN vc1 Candelario Diego MD MD tw7 Corrections: (The following items were deleted from the chart) 12/05 22:05 22:04 Constitutional: As per HPI ENT: Negative for injury, pain, and discharge, kb Cardiovascular: Negative for chest pain, palpitations, and edema, Respiratory: Negative for shortness of breath, cough, wheezing, and pleuritic chest pain, MS/Extremity: Negative for injury and deformity, Skin: Negative for injury, rash, and discoloration, Neuro: Negative for headache, weakness, numbness, tingling, and seizure, kb
--- NOTE | 2024-12-05 23:18 | ER ---
Nurse's Notes [facility] Name: Nighat Andres Age: 33 yrs Sex: Female : 1990 Arrival Date: 12/05/2024 Time: 21:40 Bed 11 Private MD: Diagnosis: Acute upper respiratory infection, unspecified;Otalgia, left ear Presentation: 12/05 22:11 Chief complaint: Patient states: left ear pain, sore throat since tuesday. Coronavirus vc1 screen: Client denies travel out of the [place] in the last 14 days. sore throat, Client presents with at least one sign or symptom that may indicate coronavirus-19. Ebola Screen: Patient negative for fever greater than or equal to 101.5 degrees Fahrenheit, and additional compatible Ebola Virus Disease symptoms Patient denies exposure to infectious person. Patient denies travel to an Ebola-affected area in the 21 days before illness onset. No symptoms or risks identified at this time. Initial Sepsis Screen: Does the patient meet any 2 criteria? No. Patient's initial sepsis screen is negative. Does the patient have a suspected source of infection? No. Patient's initial sepsis screen is negative. Risk Assessment: Do you want to hurt yourself or someone else? Patient reports no desire to harm self or others. Onset of symptoms was December 02, 2024. 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 - Infectious Disease History:: Denies. - Social history:: Smoking status: Patient denies any tobacco usage or history of. Screenin:52 [facility] ED Fall Risk Assessment (Adult) History of falling in the last 3 months, vc1 including since admission No falls in past 3 months (0 pts) Confusion or Disorientation No (0 pts) Intoxicated or Sedated No (0 pts) Impaired Gait No (0 pts) Mobility Assist Device Used No (0 pt) Altered Elimination No (0 pt) Score/Fall Risk Level 0 - 2 = Low Risk Oriented to surroundings, Maintained a safe environment, Educated pt \T\ family on fall prevention, incl call for assistance when getting out of bed, Provided non-skid footwear, Hourly rounding (assess needs \T\ fall precautionary measures) done. Abuse screen: Denies threats or abuse. Nutritional screening: No deficits noted. Tuberculosis screening: No symptoms or risk factors identified. Assessment: 23:53 General: Appears in no apparent distress. uncomfortable, Behavior is calm, cooperative, vc1 appropriate for age. Pain: Complains of pain in right ear. Neuro: Level of Consciousness is awake, alert, obeys commands, Oriented to person, place, time, situation, Appropriate for age. Cardiovascular: Heart tones S1 S2 present Capillary refill < 3 seconds Patient's skin is warm and dry. Respiratory: Airway is patent Respiratory effort is even, unlabored, Respiratory pattern is regular, symmetrical, Breath sounds are clear bilaterally. GI: No deficits noted. No signs and/or symptoms were reported involving the gastrointestinal system. : No deficits noted. No signs and/or symptoms were reported regarding the genitourinary system. EENT: Reports pain in right ear. Derm: Skin is intact, is healthy with good turgor, Skin is dry, Skin is normal, Skin temperature is warm. Vital Signs: 22:11 Weight 92.99 kg; Height 5 ft. 2 in. ; Pain 4/10; vc1 22:18 BP 158 / 116; Pulse 80; Resp 18; Temp 98.8; Pulse Ox 98% ; vc1 22:11 Body Mass Index 37.49 (92.99 kg, 157.48 cm) vc1 22:11 Pain Scale: Adult vc1 ED Course: 21:44 Patient arrived in ED. jj6 22:03 Shahrzad Faith FNP-C is [facility]. kb 22:03 Candelario Diego MD is Attending Physician. kb 22:12 Triage completed. vc1 22:14 Arm band placed on left wrist. vc1 22:46 Group A Streptococcus Rapid Sent. rk3 22:46 COVID-19 Ag + Flu A+B Ag Sent. rk3 23:53 Patient has correct armband on for positive identification. Bed in low position. Call vc1 light in reach. Provided Education on: Plan of care. 23:53 No provider procedures requiring assistance completed. Patient did not have IV access vc1 during this emergency room visit. Administered Medications: No medications were administered Medication: 23:53 VIS not applicable for this client. vc1 Outcome: 23:18 Discharge ordered by . kb 23:54 Patient left the ED. vc1 Signatures: Shahrzad Faith, LUCI-C EVENT HOST-Sophie Liang jj6 Ariadna Nur RN RN vc1 Natalie Hahn rk3
[2024-12-06 09:51] VITALS: BP 158/116; TEMP 98.8; O2SAT 98
== END 2024-12-05 23:54 | disposition home or self-care (01) ==
LOC: ER 21:40
DX: J06.9 Acute upper respiratory infection, unspecified (principal); H92.02 Otalgia, left ear; Z11.52 Encounter for screening for COVID-19
CPT/HCPCS: 36415; 87070; 87428